=== PATIENT | female | born 1995 | race Hispanic/Latino ===

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

== ENCOUNTER → 2017-01-27 | Outpatient (CLI) | payer OTHER ==
--- NOTE | 2017-01-28 12:00 | RAD ---
Two-view right hip. Indication: PAIN IN RIGHT HIP Comparison: None. IMPRESSION: No acute fracture or malalignment right hip. No advanced osteoarthritis. Tiny right hip cam lesion suspected. MRI arthrography could better evaluate as clinically indicated. Electronically signed by: Sterling Willson MD 01/28/2017 11:59 AM CDT
--- NOTE | 2017-01-28 12:00 | RAD ---
Study: Frontal and oblique views of the ribs. Indication: PAIN IN RIBS RIGHT; PLEURODYNIA Comparison: None IMPRESSION: Heart size normal. Lungs clear. No pneumothorax. No acute rib fracture identified. Electronically signed by: Sterling Willson MD 01/28/2017 11:59 AM CDT
== END ==
LOC: LAB.O 15:40
PROVIDERS: ATTEND Nurse Practitioner Family
DX: M25.551 Pain in right hip (principal); R07.81 Pleurodynia

== ENCOUNTER → 2017-10-09 | Outpatient (CLI) | payer OTHER ==
--- NOTE | 2017-10-09 16:34 | RAD ---
EXAM DESCRIPTION: Knee,Left 2 or More Views CLINICAL HISTORY: 22 years Female, PAIN IN LEFT KNEE TECHNIQUE: 3 views of the left knee were performed. COMPARISON: None available. FINDINGS: The visualized bones appear well mineralized. No acute fracture or dislocation. No evidence of suprapatellar joint effusion. The soft tissues appear grossly unremarkable. IMPRESSION: Normal radiographs of the left knee. Electronically signed by: Wilma Larios MD 10/09/2017 4:32 PM CDT
== END ==
LOC: YCFC.O 11:51
PROVIDERS: ATTEND Nurse Practitioner Family
DX: M25.562 Pain in left knee (principal)

== ENCOUNTER 2017-11-05 21:20 | Emergency (ER) | payer OTHER ==
[2017-11-05] MEDS ORDERED: SODIUM CHLORIDE 0.9% 1000ML 1,000 ML IVS ONE (21:49)
[2017-11-05] MEDS ORDERED: CYCLOBENZAPRINE HCL 5 MG TAB PO ONE (21:49)
[2017-11-05] MEDS ORDERED: ONDANSETRON ODT 8 MG TAB SL ONE (21:49)
[2017-11-05] MEDS ORDERED: ALUMINUM & MAGNESIUM HYDROXIDE 30 ML UD PO ONE (21:50)
--- NOTE | 2017-11-05 22:23 | RAD ---
EXAM DESCRIPTION: Abdomen Series CLINICAL HISTORY: 22 years Female, n/v fever COMPARISON: None. FINDINGS: Lungs are clear. No consolidation. No significant pleural effusion. No pneumothorax. Cardiomediastinal silhouette appears unremarkable. Bowel gas pattern appears nonobstructive. No free intraperitoneal air. No dilated bowel loops. No abnormal calcifications. Osseous structures demonstrate no acute findings. There is minimal dextrocurvature of the midthoracic spine. IMPRESSION: No acute findings. Electronically signed by: Luis Guzmán MD 11/05/2017 10:22 PM CDT
[2017-11-05 23:05] VITALS: O2SAT 98
[2017-11-05] MEDS ORDERED: cefTRIAXone SODIUM 1 GM in SODIUM CHL 0.9% 50ML MIN-BAG+ 50 ML IVPB ONE (23:47)
[2017-11-05] MEDS ORDERED: SUCRALFATE 1 GM/10 ML 1 GM UD PO ONE (23:47)
[2017-11-05] MEDS ORDERED: levoFLOXacin 500 MG TAB PO ONE (23:47)
--- NOTE | 2017-11-05 23:57 | ED.PDOC ---
History of Present Illness - General Chief Complaint: Fever Stated Complaint: fever and vomiting post dental surgery Time Seen by Provider: 11/05/17 21:23 Source: patient, family Exam Limitations: clinical condition - History of Present Illness Initial Comments: The patient is a 22-year-old female presenting to the emergency room secondary to2 days of vomiting. The patient had her wisdom teeth taken out one day before that. She has been on Tylenol No. 3 since. She has been having a hard time keeping down liquids. No real abdominal pain just mainly nausea and vomiting. No syncope or near-syncope. No back pain. She does obviously have some pain at the wisdom teeth extraction sites. She has not however taken her Flexeril in the last 3 days she has been on for a very long time for her cerebral palsy. Severity: moderate Improving Factors: nothing Worsening Factors: nothing Associated Symptoms: malaise, nausea/vomiting, weakness Allergies/Adverse Reactions: Allergies NO KNOWN ALLERGY Allergy (Verified 06/17/12 08:40) Home Medications: Ambulatory Orders Bisacodyl Suppository 10Mg [Dulcolax Suppository 10mg] 1 ea [place] BID PRN #15 sup 06/10/14 Ondansetron [Zofran Odt] 4 mg PO Q6HR PRN #10 tab 06/10/14 Acetaminophen W/ Codeine [Tylenol W/ CODEINE #3] 1 ea PO Q6H #20 10/24/14 Amoxicillin & Pot Clavulanate [Augmentin] 875 mg PO BID #14 tab 10/24/14 Ondansetron [Zofran Odt] 4 mg PO Q6H #20 tab 10/24/14 Tramadol HCl [Ultram] 50 mg PO Q6H #20 tab 10/24/14 Omeprazole [PriLOSEC Cap] 20 mg PO ACBK #30 cap 01/16/15 Famotidine [Pepcid Tab] 20 mg PO BID #60 tab 11/06/17 Levofloxacin [Levaquin] 250 mg PO DAILY #7 tablet 11/06/17 Ondansetron [Zofran Odt] 4 mg PO Q4H PRN #10 tab 11/06/17 Review of Systems - Review of Systems Constitutional: States: malaise, weakness EENTM: States: see HPI Respiratory: States: no symptoms reported Cardiology: States: no symptoms reported Gastrointestinal/Abdominal: States: nausea, vomiting Genitourinary: States: no symptoms reported Musculoskeletal: States: no symptoms reported - no new symptoms Skin: States: no symptoms reported Neurological: States: no symptoms reported - no new symptoms Endocrine: States: no symptoms reported All other Systems: No Change from Baseline Past Medical History (General) - Patient Medical History Hx Seizures: No Hx Stroke: No Hx Dementia: No Hx Asthma: No Hx of COPD: No Hx Cardiac Disorders: No Hx Congestive Heart Failure: No Hx Pacemaker: No Hx Hypertension: No Hx Thyroid Disease: No Hx Diabetes: No Hx Gastroesophageal Reflux: No Hx Renal Disease: No Hx Cancer: No Hx of HIV: No Hx Hepatitis C: No Hx MRSA: No Surgical History: other - Vaccination History Hx Influenza Vaccination: No Immunizations Up to Date: Yes - Social History Hx Tobacco Use: No Hx Alcohol Use: No Hx Substance Use: No Hx Substance Use Treatment: No Hx Depression: No Hx Physical Abuse: No Hx Emotional Abuse: No Hx Suspected Abuse: No - Female History Patient : No Family Medical History - Family History Mother Living Status: Still Living Physical Exam - Physical Exam General Appearance: Alert, Comfortable, No apparent distress Eye Exam: bilateral normal Ears, Nose, Throat: hearing grossly normal, other - wisdom teeth extraction sites appear to be healing with no obvious superimposed infection. Neck: non-tender, full range of motion, supple Respiratory: lungs clear, normal breath sounds, no respiratory distress, no accessory muscle use Cardiovascular/Chest: normal peripheral pulses, regular rate, rhythm, no edema Peripheral Pulses: radial,right: 2+, radial,left: 2+, dorsalis pedis,right: 2+, dorsalis pedis,left: 2+ Gastrointestinal/Abdominal: non tender - no palpable mass or rebound or peritoneal signs, soft Rectal Exam: deferred Back Exam: no CVA tenderness, no vertebral tenderness Neurologic: alert, normal mood/affect, oriented x 3, other - chronic changes from cerebral palsy Skin Exam: normal color Comments: Vital Signs - 24 hr 11/05/17 11/05/17 11/05/17 21:33 22:53 23:00 Temperature 99.3 F Pulse Rate [ 90 83 80 left] Respiratory 18 20 20 Rate Blood Pressure 131/89 122/79 126/82 [left] O2 Sat by Pulse 99 99 98 Oximetry Progress - Progress Progress: 11/05/17 23:59 the patient is a 22-year-old female presenting to the emergency room secondary to a couple of days of nausea and vomiting and low-grade fever after she had her wisdom teeth out. This is probably multifactorial. She does have a significant urinary tract infection and did receive a dose of Rocephin and Levaquin here tonight. Urine culture is being done and this does need to be followed up with her primary care doctor early next week. The patient is going to be placed on Levaquin for the next 7 days at a lower dose for urinary tract infection as well as for prophylaxis for the wisdom teeth extraction sites. She does appear to have a significant gastritis and will be placed on Pepcid twice daily for the next couple of weeks. She will additionally be written for some Zofran for as needed use to control any nausea or vomiting. She did receive a liter of IV fluids for mild dehydration. Additionally the nausea and vomiting may have been triggered by coming off of her Flexeril. She is to resume this and discontinue the Tylenol No. 3. ER warnings were given. Follow up with primary care doctor next week. - Results/Orders Results/Orders: Laboratory Results - last 24 hr 11/05/17 11/05/17 11/05/17 21:50 21:50 21:50 WBC 8.0 RBC 4.71 Hgb 14.4 Hct 42.2 MCV 89.7 MCH 30.7 MCHC 34.2 RDW 13.1 Plt Count 307 MPV 7.2 L Absolute Neuts (auto) 5.20 Absolute Lymphs (auto) 2.10 Absolute Monos (auto) 0.50 Absolute Eos (auto) 0.10 Absolute Basos (auto) 0.00 Neutrophils % 65.6 Lymphocytes % 26.8 Monocytes % 6.0 Eosinophils % 1.2 Basophils % 0.4 Sodium 137 Potassium 3.5 L Chloride 101 Carbon Dioxide 25 Anion Gap 14.5 BUN < 5 L Creatinine 0.44 L BUN/Creatinine Ratio 11.4 Random Glucose 93 Serum Osmolality 270.4 L Calcium 9.6 Magnesium 1.9 Total Bilirubin 0.9 AST 24 ALT 15 Alkaline Phosphatase 75 Serum Total Protein 9.0 H Albumin 4.8 Globulin 4.2 H Albumin/Globulin Ratio 1.1 Amylase 45 Lipase 18 L Urine Color Urine Appearance Urine pH Ur Specific [place] Urine Protein Urine Glucose (UA) Urine Ketones Urine Blood Urine Nitrite Urine Bilirubin Urine Urobilinogen Ur Leukocyte Esterase Urine RBC Urine WBC Ur Epithelial Cells Urine Bacteria Urine HCG, Qual Negative 11/05/17 23:19 WBC RBC Hgb Hct MCV MCH MCHC RDW Plt Count MPV Absolute Neuts (auto) Absolute Lymphs (auto) Absolute Monos (auto) Absolute Eos (auto) Absolute Basos (auto) Neutrophils % Lymphocytes % Monocytes % Eosinophils % Basophils % Sodium Potassium Chloride Carbon Dioxide Anion Gap BUN Creatinine BUN/Creatinine Ratio Random Glucose Serum Osmolality Calcium Magnesium Total Bilirubin AST ALT Alkaline Phosphatase Serum Total Protein Albumin Globulin Albumin/Globulin Ratio Amylase Lipase Urine Color Yellow Urine Appearance Sl cloudy Urine pH 7.0 Ur Specific [place] 1.010 Urine Protein Negative Urine Glucose (UA) Negative Urine Ketones 15 H Urine Blood Negative Urine Nitrite Positive H Urine Bilirubin Negative Urine Urobilinogen 0.2 Ur Leukocyte Esterase Large H Urine RBC 1-3 Urine WBC Tntc H Ur Epithelial Cells 5-10 Urine Bacteria 4+ H Urine HCG, Qual acute abdominal series shows no significant abnormality. Departure - Departure Clinical Impression: Cystitis, Dehydration, mild Nausea and vomiting Qualifiers: Vomiting type: unspecified Vomiting Intractability: non-intractable Qualified Code(s): R11.2 - Nausea with vomiting, unspecified Gastritis Qualifiers: Gastritis type: unspecified gastritis Chronicity: acute Gastritis bleeding: without bleeding Qualified Code(s): K29.00 - Acute gastritis without bleeding Disposition: Discharge to Home or Self Care Condition: Fair Departure Forms: ED Discharge - Pt. Copy, Patient Portal Self Enrollment Instructions: Nausea and Vomiting, Adult (DC), Gastritis (DC), Urinary Tract Infection, Adult (DC) Diet: bland diet Activity: increase activity as tolerated Referrals: Jackie Eduardo NP [Primary Care Provider] - 1-5 Days Prescriptions: Famotidine [Pepcid Tab] 20 mg PO BID #60 tab Levofloxacin [Levaquin] 250 mg PO DAILY #7 tablet Ondansetron [Zofran Odt] 4 mg PO Q4H PRN #10 tab PRN Reason: Vomiting Home Medications: Ambulatory Orders Bisacodyl Suppository 10Mg [Dulcolax Suppository 10mg] 1 ea [place] BID PRN #15 sup 06/10/14 Ondansetron [Zofran Odt] 4 mg PO Q6HR PRN #10 tab 06/10/14 Acetaminophen W/ Codeine [Tylenol W/ CODEINE #3] 1 ea PO Q6H #20 10/24/14 Amoxicillin & Pot Clavulanate [Augmentin] 875 mg PO BID #14 tab 10/24/14 Ondansetron [Zofran Odt] 4 mg PO Q6H #20 tab 10/24/14 Tramadol HCl [Ultram] 50 mg PO Q6H #20 tab 10/24/14 Omeprazole [PriLOSEC Cap] 20 mg PO ACBK #30 cap 01/16/15 Famotidine [Pepcid Tab] 20 mg PO BID #60 tab 11/06/17 Levofloxacin [Levaquin] 250 mg PO DAILY #7 tablet 11/06/17 Ondansetron [Zofran Odt] 4 mg PO Q4H PRN #10 tab 11/06/17 Additional Instructions: the patient is a 22-year-old female presenting to the emergency room secondary to a couple of days of nausea and vomiting and low-grade fever after she had her wisdom teeth out. This is probably multifactorial. She does have a significant urinary tract infection and did receive a dose of Rocephin and Levaquin here tonight. Urine culture is being done and this does need to be followed up with her primary care doctor early next week. The patient is going to be placed on Levaquin for the next 7 days at a lower dose for urinary tract infection as well as for prophylaxis for the wisdom teeth extraction sites. She does appear to have a significant gastritis and will be placed on Pepcid twice daily for the next couple of weeks. She will additionally be written for some Zofran for as needed use to control any nausea or vomiting. She did receive a liter of IV fluids for mild dehydration. Additionally the nausea and vomiting may have been triggered by coming off of her Flexeril. She is to resume this and discontinue the Tylenol No. 3. ER warnings were given. Follow up with primary care doctor next week. Print Language: Tajik
[2017-11-06] MEDS ORDERED: SODIUM CHL 0.9% 50ML MIN-BAG+ 50 ML IVPB ONE
[2017-11-06] MEDS ORDERED: cefTRIAXone SODIUM 1 GM VIAL ONE
[2017-11-06 00:41] VITALS: BP 147/74; TEMP 98.2
== END 2017-11-06 00:41 | disposition home or self-care (01) ==
LOC: ER 21:20
DX: K29.00 Acute gastritis without bleeding (principal); E86.0 Dehydration; N30.90 Cystitis, unspecified without hematuria; G80.9 Cerebral palsy, unspecified; Z79.899 Other long term (current) drug therapy
CPT/HCPCS: 36415; 74019; 80053; 81001; 81025; 82150; 83690; 83735; 85025; 87086; 87088; 87186; J0696; J7030; J7050

== ENCOUNTER → 2018-02-27 | Outpatient (CLI) | payer OTHER ==
--- NOTE | 2018-02-27 17:57 | RAD ---
EXAM DESCRIPTION: Knee,Right Complete CLINICAL HISTORY: 23 years, Female, PAIN COMPARISON: None TECHNIQUE: Three views of the right knee FINDINGS: No fracture or dislocation. Bones appear normally mineralized with normal trabecular pattern. Normal appearance of medial and lateral compartments on frontal view. Lateral view shows normal position of the patella. No patellar spurring or enthesopathy. No suprapatellar knee joint effusion. Normal contour of quadriceps and patellar tendons. No abnormal patellar tilt or subluxation on patellar sunrise view. IMPRESSION: Negative for fracture or dislocation. Electronically signed by: Orion Bolanos MD 02/27/2018 5:56 PM CDT
== END ==
LOC: RAD 17:09
PROVIDERS: ATTEND Nurse Practitioner Family
DX: M25.561 Pain in right knee (principal)

== ENCOUNTER → 2018-06-15 | Outpatient (CLI) | payer OTHER ==
--- NOTE | 2018-06-15 09:57 | RAD ---
EXAM DESCRIPTION: Pelvis CLINICAL HISTORY: 23 years Female, PAIN IN LEFT HIP COMPARISON: Previous x-ray pelvis July 22, 2016 FINDINGS: No fracture. No dislocation. Normal bony mineralization. Hips appear intact. Intact bones of the pelvic ring. The lower L-spine and sacrum appear normal. Mild degenerative changes at the pubic symphysis. These findings were present previously. IMPRESSION: Negative for fracture or dislocation. Electronically signed by: Orion Bolanos MD 06/15/2018 9:55 AM [facility] [[email or web address]]
--- NOTE | 2018-06-15 09:59 | RAD ---
EXAM DESCRIPTION: Ankle,Left 3 Views CLINICAL HISTORY: 23 years, Female, PAIN IN LEFT ANKLE COMPARISON: None. TECHNIQUE: AP/lateral/oblique of the left ankle FINDINGS: Intact medial and lateral malleolus. There is no significant soft tissue swelling laterally or medially. Intact proximal metatarsals. Intact dome of the talus. Lateral view shows no evidence of fracture of the body of the talus or calcaneus. No calcaneal spurring is seen. No ankle joint narrowing, spurring or effusion. IMPRESSION: Negative for fracture or dislocation. Electronically signed by: Orion Bolanos MD 06/15/2018 9:56 AM [facility]
--- NOTE | 2018-06-15 10:01 | RAD ---
EXAM DESCRIPTION: Knee,Left four x-ray views CLINICAL HISTORY: 23 years, Female, PAIN IN LEFT KNEE COMPARISON: Previous left knee x-rays May 26, 2009 TECHNIQUE: Four views of the left knee FINDINGS: No fracture or dislocation. Bones appear normally mineralized with normal trabecular pattern. Normal appearance of medial and lateral compartments on frontal view. Lateral view shows normal position of the patella. No patellar spurring or enthesopathy. No suprapatellar knee joint effusion. Normal contour of quadriceps and patellar tendons. No abnormal patellar tilt or subluxation on patellar sunrise view. IMPRESSION: Negative for fracture or dislocation. Electronically signed by: Orion Bolanos MD 06/15/2018 9:59 AM [facility]
== END ==
LOC: RAD 08:41
PROVIDERS: ATTEND Orthopaedic Surgery
DX: M25.562 Pain in left knee (principal); M25.552 Pain in left hip; M25.572 Pain in left ankle and joints of left foot

== ENCOUNTER 2019-04-09 05:31 | Day surgery (SDC) | payer OTHER ==
[2019-04-09] MEDS ORDERED: LIDOCAINE 1% 10 ML VIAL INJ ONE (07:00)
[2019-04-09] MEDS ORDERED: raNITIdine HCL INJ 25 MG/ML VIAL ONE (07:00)
[2019-04-09] MEDS ORDERED: KETOROLAC TROMETHAMINE INJ 30 MG/ML VIAL ONE (07:00)
[2019-04-09] MEDS ORDERED: PROPOFOL 200 MG/20 ML VIAL IV ONE (07:00)
[2019-04-09] MEDS ORDERED: DEXAMETHASONE INJ 10 MG/ML VIAL ONE (07:00)
[2019-04-09] MEDS ORDERED: LACTATED RINGERS 1,000 ML ONE (09:14)
[2019-04-09] MEDS ORDERED: MIDAZOLAM INJ 2 MG/2 ML VIAL ONE (10:19)
[2019-04-09] MEDS ORDERED: ROCURONIUM BROMIDE 10 MG/ML VIAL ONE (10:20)
[2019-04-09] MEDS ORDERED: fentaNYL CITRATE INJ 50 MCG/ML AMP ONE (10:20)
[2019-04-09] MEDS ORDERED: SUGAMMADEX SODIUM 200 MG/2 ML VIAL IV ONE (10:20)
[2019-04-09] MEDS ORDERED: BUPIVACAINE 0.25% W/EPI 50 ML VIAL INJ ONE ×2 (10:30→10:45)
[2019-04-09] MEDS ORDERED: HYDROmorphone HCL INJ 2 MG/ML VIAL ONE (11:22)
--- NOTE | 2019-04-09 11:26 | OP ---
DATE OF PROCEDURE: 04/09/19 PREOPERATIVE DIAGNOSIS: 1. Pilonidal cyst. POSTOPERATIVE DIAGNOSIS: 1. Pilonidal cyst. PROCEDURE: 1. Excision of pilonidal cyst. SURGEON: Brad Lombardo MD. ANESTHESIA: General and local. FINDINGS: There were 2 pits leading in a single tract that was offset a little bit posteriorly from where she had had an infection which is now cleared. COMPLICATIONS: None. ESTIMATED BLOOD LOSS: None. CONDITION: Stable. PLAN: Discharge. SPECIMEN: Pilonidal and skin. INDICATION: As stated. PROCEDURE: In prone position after general anesthesia, the area was probed. There were 2 pits. The most inferior one led upward towards the exterior pit which was about 2.5 cm away and then changes a little bit laterally on the left from the previous infection and drainage which has now cleared. Local anesthesia was placed in the area. Elliptical incision was made around the skin defects. These were removed. We then dissected with cautery onto the tract removing the anterior portion. The area was irrigated. Good hemostasis was achieved. All affected diseased skin had been removed. It was then packed with gauze. She was awakened and taken to Recovery to be discharged. #[id number] cc: Bereket Steward MD [facility]
[2019-04-09] MEDS ORDERED: ACETAMINOPHEN W/COD #3 TAB 1 EA TAB ONE (12:20)
[2019-04-09] MEDS ORDERED: ONDANSETRON ODT 8 MG TAB ONE (13:17)
[2019-04-09] MEDS ORDERED: ONDANSETRON ODT 8 MG TAB PO ONE (13:18)
[2019-04-09] MEDS ORDERED: PROMETHAZINE HCL INJ 25 MG/ML VIAL ONE (13:56)
[2019-04-09 16:16] VITALS: O2SAT 99
[2019-04-09 16:17] VITALS: BP 122/72; TEMP 98.2
== END 2019-04-09 15:32 | disposition home or self-care (01) ==
LOC: AMB 05:31
PROVIDERS: ATTEND Surgery
DX: L05.91 Pilonidal cyst without abscess (principal); G80.9 Cerebral palsy, unspecified; Z79.899 Other long term (current) drug therapy
CPT/HCPCS: 00300; 11770; 81001; 81025; 88304; J1100; J1170; J1885; J2250; J2550; J2780; J3010; J3490; J7120

== ENCOUNTER → 2019-11-02 | Outpatient (CLI) | payer OTHER ==
--- NOTE | 2019-11-02 14:37 | MRI ---
EXAM DESCRIPTION: Knee,Left-MRI CLINICAL HISTORY: PAIN, instability COMPARISON: Left knee radiograph 06/15/2018. TECHNIQUE: MRI of the left knee is performed with multiplanar multi sequence imaging, without intravenous contrast. FINDINGS: Bone and joint: No focal bony contusion or acute fracture. Small knee joint effusion. Patella marcelina is present with an elevated Insall-Salvati ratio of 1.6. The patellar apex is positioned within the supratrochlear region during knee extension (as is on the MR examination). Tibial tuberosity-trochlear groove distance measures approximately 13 mm, within normal limits. Cartilage: Mild increased signal/chondromalacia and grade 2 chondrosis involving the inferolateral aspect of the patella articular cartilage with associated grade 2-3 chondral thinning involving the lateral trochlear articular surface. Grade 1-2 chondrosis involves the medial knee compartment weightbearing articular surfaces. Focal grade 3 chondrosis involving the lateral femoral condyle central weightbearing surface (series 601 image 17). Medial meniscus: Intact Lateral meniscus: Intact Anterior cruciate ligament: Subtle increased intrasubstance signal consistent with a low-grade/grade 1 chronic sprain. Posterior cruciate ligament: Intact Medial collateral ligament: Intact Lateral collateral ligament: Intact Popliteus tendon: Intact Biceps femoris tendon: Intact Iliotibial band: Intact Medial and lateral retinaculum: Focal full-thickness tear of the medial patellofemoral retinaculum/ligament at the medial infrapatellar region measuring 1.5 mm in width (series 301 image 20). Extensor mechanism: The distal quadriceps tendon is intact. The patella tendon is intact. Soft tissues: Mild lateral infrapatellar fat pad impingement edema with more subtle prefemoral fat pad impingement edema. No solid or cystic mass. No focal muscle strain or edema. IMPRESSION: 1. Patella marcelina with focal full-thickness tear of the medial patellofemoral ligament/retinaculum (MPFL). There is associated impingement edema within the infrapatellar and prefemoral fat pads. Findings consistent with patellofemoral instability. 2. Patellofemoral compartment early degenerative changes with low grade chondromalacia. 3. ACL mild increased intrasubstance signal suggestive of a chronic grade 1 sprain. 4. Small knee joint effusion. Electronically signed by: Markus Stern DO 11/02/2019 2:36 PM CDT
== END ==
LOC: MRI 13:00
PROVIDERS: ATTEND Family Medicine
DX: M22.2X2 Patellofemoral disorders, left knee (principal); M23.8X2 Other internal derangements of left knee; R60.9 Edema, unspecified; M25.462 Effusion, left knee

== ENCOUNTER → 2020-04-12 | Outpatient (CLI) | payer OTHER | LOC: YCFC.O 10:58 | PROVIDERS: ATTEND Nurse Practitioner Family | DX: Z20.828 Contact with and (suspected) exposure to other viral communicable diseases (principal) ==

== ENCOUNTER → 2020-04-20 | Outpatient (CLI) | payer OTHER ==
--- NOTE | 2020-04-21 09:11 | RAD ---
EXAM: Chest,2 Views CLINICAL HISTORY: COVID COMPARISON STUDY: January 27, 2017 TECHNICAL: Posteroanterior (PA) and lateral views of the chest were performed. FINDINGS: No consolidations, effusions, or edema. The heart size is not enlarged. No acute osseous abnormality. There is a mild curvature of the thoracic spine to the right. IMPRESSION: No acute abnormality. Electronically signed by: Mark Armas MD 04/21/2020 9:09 AM [facility]
== END ==
LOC: YCFC.O 11:26
PROVIDERS: ATTEND Nurse Practitioner Family
DX: U07.1 COVID-19 (principal)

== ENCOUNTER → 2020-04-25 | Outpatient (CLI) | payer OTHER | LOC: YCFC.O 15:19 | PROVIDERS: ATTEND Nurse Practitioner Family | DX: E87.6 Hypokalemia (principal) ==

== ENCOUNTER → 2020-05-25 | Outpatient (CLI) | payer OTHER | LOC: YCFC.O 08:24 | PROVIDERS: ATTEND Family Medicine | DX: M54.9 Dorsalgia, unspecified (principal); R53.83 Other fatigue; N91.2 Amenorrhea, unspecified ==